=== PATIENT | female | born 1950 | race Caucasian/White ===

== ENCOUNTER 2020-12-10 16:54 | Emergency (ER) | payer OTHER, BC ==
[2020-12-10 17:05] VITALS: TEMP 98.4; BMI 33.6
[2020-12-10] MEDS ORDERED: SODIUM CHLORIDE 0.9% 500 ML INFUS.BAG IV ONE (17:21)
[2020-12-10 18:01] LABS: EOS % 5.1 % (0-4.5); HEMATOCRIT 37.2 % (32.4-45.2); HEMOGLOBIN 12.1 GM/dl (10.7-15.3); LYMPH % 53.7 % (8-40); MCH 30.2 pg (25.7-33.7); MCHC 32.7 g/dl (32.0-36.0); MEAN CELL VOLUME 92.3 fl (80-96); MEAN PLT VOLUME 9.8 fl (7.5-11.1); MONO % 11.8 % (3.8-10.2); NEUT % 26.4 % (42.8-82.8); PLATELET COUNT 418 10^3/uL (134-434); RBC 4.03 M/mm3 (3.60-5.2); WHITE BLOOD COUNT 9.2 K/mm3 (4.0-10.8)
[2020-12-10 18:09] LABS: ALBUMIN 3.9 g/dl (3.4-5.0); BILIRUBIN,TOTAL 0.4 mg/dl (0.2-1); CALCIUM 9.6 mg/dl (8.5-10); TOT PROT 8.3 g/dl (6.4-8.2)
[2020-12-10 19:16] VITALS: BP 153/68; PULSE 78
== END 2020-12-10 20:10 | disposition home or self-care (01) ==
LOC: FER 16:54
DX: R10.12 Left upper quadrant pain (principal)
CPT/HCPCS: 36415; 74177-TC; 80053; 81003; 81015; 83690; 85025; 87086; 93005; 99285-25; Q9967